=== PATIENT | female | born 1955 | race Caucasian/White ===

== ENCOUNTER → 2024-05-06 07:55 | Outpatient (REF) | payer MEDICARE, OTHER, SELFPAY | LOC: HWRAD 07:55 | PROVIDERS: ATTENDING PHYSICIAN Surgery; FAMILY PHYSICIAN Family Medicine | DX: R10.32 Left lower quadrant pain (principal); R22.42 Localized swelling, mass and lump, left lower limb | CPT/HCPCS: 76882 ==

== ENCOUNTER 2025-05-02 07:32 | Emergency (ER) | payer MEDICARE, OTHER, SELFPAY ==
[2025-05-02 07:40] VITALS: BP 170/91
[2025-05-02] MEDS: ZOFRAN ODT (ORALLY DISINTEGRATING) 4 MG PO (07:47)
--- NOTE | 2025-05-02 09:01 | ED.GENMED ---
History of Present Illness
General
Chief Complaint: Abdominal Pain
Source: patient
Exam Limitations: none
Time Seen by Provider: 05/02/25 08:44
History of Present Illness
History of Present Illness:
69-year-old female presents with relatively sudden onset pain to the lower abdomen with associated nausea vomiting and some loose stools. The pain tended to settle in the left lower abdomen after the onset. Since waiting in the waiting room and
receiving Zofran her symptoms are improved. No known sick contacts. No fevers. No flank pain or urinary symptoms. No chest pain or shortness of breath. No prior abdominal surgical history. She is healthy otherwise and does not take any
medications
Past History
Past History
ED Past Medical History: None
ED Past Surgical History: Tonsilectomy
Social History
Tobacco: Non-smoker
Alcohol: None
Drug: None
Personal:
Living: with family
Phy Exam
Physical Exam
Physical Exam:
General: Uncomfortable appearing female in no acute respiratory distress HEENT normal cephalic atraumatic
Heart: Regular rate and rhythm lungs: Clear no wheeze
Abdomen soft comb tender to the suprapubic and left lower quadrants no guarding nondistended costovertebral angle tenderness
Extremities: No cyanosis
Course
Orders/Labs/Results
Orders:
Orders
05/02/25 07:47
Ondansetron Orally Disint [Zofran Odt (Orally Disintegrating)] 4 mg PO NOW STA
05/02/25 08:52
CT Abd/pelvis W Iv Cont Urgent
Comment:
Reason For Exam: llq pain
05/02/25 09:14
Complete Blood Count/With Diff Urgent
Comprehensive Metabolic Panel Urgent
Lipase Urgent
05/02/25 09:24
0.9% Sodium Chloride 1000 ml [Nss] 1,000 ml IV BOLUS
05/02/25 10:44
Urinalysis Reflex To Culture Urgent
Date Specimen was Collected: 05/02/25
Time Specimen was Collected: 10:43
Urine Microscopic Reflex Cult Urgent
Abnormal Lab Results
05/02/25 05/02/25
09:14 10:44
MCV 100.9 H fL
(81.0-99.0)
MCH 35.0 H pg
(27.0-31.0)
Absolute Neuts (auto) 7.2 H 10^3/uL
(1.4-6.5)
Absolute Lymphs (auto) 0.8 L 10^3/uL
(1.2-3.4)
Neutrophils % 86.5 H %
(42.2-75.2)
Lymphocytes % 9.3 L %
(20.5-51.1)
Chloride 111 H mmol/L
(98-107)
Glucose 107 H mg/dl
(70-99)
Ur Occult Blood Reflex 2+ A
(Negative)
Urine Albumin (Reflex) 1+ A
(Neg - Trace)
05/02/25 09:14
05/02/25 09:14
Vital Signs
Initial and Last Documented VS:
Initial Vital Signs
Temp Pulse Resp BP Pulse Ox
97.5 F 78 18 170/91 100
05/02/25 07:40 05/02/25 07:40 05/02/25 07:40 05/02/25 07:40 05/02/25 07:40
Last Documented Vital Signs
Temp Pulse Resp BP Pulse Ox
97.5 F 96 17 143/79 97
05/02/25 07:40 05/02/25 11:15 05/02/25 11:15 05/02/25 11:00 05/02/25 11:15
MDM/Problems Addressed
Differential Diagnosis Includes:
Abdominal pain with nausea and vomiting and diarrhea. Viral illness versus diverticulitis versus bowel obstruction less likely to be appendicitis given the onset of left-sided biased.
Check labs CT pending nausea pain medicine however patient declined
*Pulse Oximetry
SaO2: 100
Oxygen Mode of Delivery: Room air
Patient hypoxic: no
*Critical Care Note
Total Time (30-74mins, 75-104mins- exclusive of procedures): Not Applicable
Update Note
Update Note:
CT findings concerning for possible colitis. No other acute finding. No further vomiting or diarrhea since arrival. She did receive fluid and is resting comfortably. Not able to provide stool sample for culture today. Will advise clear liquids
and bland diet. Return precautions given
ED Attending Note
-
Portions of this chart may have been created with voice recognition software.� Occasional wrong word or��sound alike� substitutions may have occurred due to the inherent limitations of voice recognition software.
Discharge Plan
Departure
Patient Disposition: Home (Routine Discharge)
Date of Disposition: 05/02/25
Time of Disposition: 11:37
Patient with high blood pressure during this ER visit?: No
Discharge Problem:
Colitis
Instructions: Clear Liquid Diet
Prescriptions:
New
ondansetron 4 mg tablet,disintegrating
4 mg PO TID PRN (Reason: nausea and vomiting) Qty: 10 0RF
Referrals:
Jacques Bernard MD [Family Provider, Family Practice]
Activity Restrictions/Additional Instructions:
Use Zofran if needed for nausea. Drink plenty of clear liquids. Advance to bland diet as tolerated. Return here if worse otherwise follow-up with your doctor
Interventions
Interventions:
*Risk Screen - Suicide Last Done: 05/02/25 07:40
*General Assessment Last Done: 05/02/25 07:40
*Neglect/Abuse Screening Last Done: 05/02/25 08:00
*ED- Fall Risk Assessment Last Done: 05/02/25 08:00
FK-Rcluep-Uiqztusxkn Assessment Last Done: 05/02/25 08:00
Discharge Date and Time
Print Language: [place]
[2025-05-02] MEDS: NSS 1000 IV (09:27)
[2025-05-02 09:38] LABS: Hematocrit 43.6 % (37.0-47.0); Hemoglobin 15.1 g/dL (12.0-16.0); Mean Corp Hgb Conc. 34.6 g/dL (33.0-37.0); Mean Corpuscular Volume 100.9 fL (81.0-99.0); Nucleated Red Blood Cells % 0 %; Platelet Count 150 10^3/uL (130-400); Red Cell Dist. Width 12.3 % (11.5-14.5)
[2025-05-02 10:01] LABS: ALT (SGPT) 21 U/L (0-35); AST (SGOT) 24 U/L (14-36); Albumin 4.8 g/dl (3.5-5.0); Alkaline Phosphatase 70 U/L (38-126); Blood Urea Nitrogen 9 mg/dl (7-17); Calcium 9.7 mg/dl (8.4-10.2); Carbon Dioxide 26 mmol/L (22-30); Chloride 111 mmol/L (98-107); Glucose 107 mg/dl (70-99); Lipase 65 U/L (23-300); Potassium 4.3 mmol/L (3.5-5.1); Sodium 144 mmol/L (135-145); Total Protein 7.5 g/dl (6.3-8.2); eGFR > 60.00
[2025-05-02 11:00] VITALS: BP 143/79
[2025-05-02 11:13] LABS: Urine Character Clear (Clear)
[2025-05-02 11:42] LABS: Urine White Cell 0-2 /HPF (0-5)
== END 2025-05-02 12:03 | disposition home or self-care (01) ==
LOC: EMR 07:32
PROVIDERS: Physician Assistant; EMERGENCY PHYSICIAN Emergency Medicine; FAMILY PHYSICIAN Family Medicine
DX: K52.9 Noninfective gastroenteritis and colitis, unspecified (principal)
CPT/HCPCS: 96360; 99284; 74177; 80053; 81003; 81015; 83690; 85025; Q9967